=== PATIENT | female | born 1980 | race Caucasian/White ===

== ENCOUNTER 2016-11-29 12:25 | Emergency (ER) | payer MEDICAID ==
[~2016-11-29] VITALS: Ht 162.6 cm; Wt 90.0 kg
[2016-11-29 12:27] VITALS: BP 141/79; PULSE 86; RESP 16; TEMP 97.8; O2SAT 98
--- NOTE | 2016-11-29 12:50 | PD ---
HPI Chief Complaint: Complaint Time Seen by Provider: 12:46 Travel History International Travel<30 days: No Contact w/Intl Traveler<30days: No Traveled to known affect area: No History of Present Illness HPI 36-year-old female came to the emergency room with history of vaginal bleeding. She didn't speak Yoruba only and most of the conversation was mediated through an educational sign language interpreter from [employer]. Patient says that she did a home test which was positive. Her last menstrual period was September 16, 2016. She started bleeding and cramping since yesterday. She came in to be checked out. Vital signs are stable. Patient is A0. She does not have an OB for this . [facility] Past Medical History Narrative Medical List of her past medical history as reviewed from the nursing note. Medical History: Denies Significant Hx Diminished Hearing: No Tetanus Vaccination: Unknown Influenza Vaccination: Yes ?: LMP: [id number] Past Surgical History Surgical History: No Previous Surgery Social History Alcohol Use: No Tobacco Use: No Substance Use: No Allergies-Medications (Allergen,Severity, Reaction): Coded Allergies: No Known Allergies (Unverified , 12/01/16) Comments No known drug allergies. Reported Meds & Prescriptions Reported Meds & Active Scripts Active No Active Prescriptions or Reported Medications Narrative Medication Awaiting for the nurse to the medical reconciliation form home medications. Review of Systems Except as stated in HPI: all other systems reviewed are Neg Physical Exam Narrative GENERAL: Awake, alert, mild distress SKIN: Warm and dry. HEAD: Atraumatic. Normocephalic. EYES: Pupils equal and round. No scleral icterus. No injection or drainage. ENT: No nasal bleeding or discharge. Mucous membranes pink and moist. NECK: Trachea midline. No JVD. CARDIOVASCULAR: Regular rate and rhythm. No murmur appreciated. RESPIRATORY: No accessory muscle use. Clear to auscultation. Breath sounds equal bilaterally. GASTROINTESTINAL: Abdomen soft, non-tender, nondistended. Hepatic and splenic margins not palpable. : External inspection showed dried blood around the perineum and inner thigh. Speculum exam showed a significant quantity of blood and tissue product in the vaginal vault. This was cleared with the help of sponge holding forceps and 4 sponges were used to clean the blood in the tissue product. The tissues were put in a histopathology container to be sent to pathology for analysis. Cervix was open and products of conception was noticed to be coming out. MUSCULOSKELETAL: No obvious deformities. No clubbing. No cyanosis. No edema. NEUROLOGICAL: Awake and alert. No obvious cranial nerve deficits. Motor grossly within normal limits. Normal speech. PSYCHIATRIC: Appropriate mood and affect; insight and judgment normal. Data Data Last Documented VS Vital Signs Date Time Temp Pulse Resp B/P Pulse Ox O2 Delivery O2 Flow Rate FiO2 11/29/16 16:40 87 18 132/75 98 11/29/16 14:00 Room Air 11/29/16 12:27 97.8 Orders Beta Hcg (Quant/Titer) (11/29/16 12:53) Complete Blood Count With Diff (11/29/16 12:53) Basic Metabolic Panel (Bmp) (11/29/16 12:53) Type And Screen (11/29/16 12:53) Ed Urine Pregnancytest Poc (11/29/16 12:53) Ed Poc Ultrasound (11/29/16 12:53) Sodium Chlor 0.9% 1000 Ml Inj (Ns 1000 M (11/29/16 14:00) Pathology Req For Addl Service (11/29/16 13:46) Mandatory Outpatient Referral (11/29/16 14:32) Acetaminophen (Tylenol) (11/29/16 14:45) Labs Laboratory Tests Test 11/29/16 12:35 White Blood Count 9.5 TH/MM3 Red Blood Count 5.31 MIL/MM3 Hemoglobin 14.2 GM/DL Hematocrit 42.3 % Mean Corpuscular Volume 79.7 FL Mean Corpuscular Hemoglobin 26.7 PG Mean Corpuscular Hemoglobin 33.4 % Concent Red Cell Distribution Width 14.1 % Platelet Count 254 TH/MM3 Mean Platelet Volume 10.0 FL Neutrophils (%) (Auto) 70.3 % Lymphocytes (%) (Auto) 21.7 % Monocytes (%) (Auto) 6.6 % Eosinophils (%) (Auto) 1.0 % Basophils (%) (Auto) 0.4 % Neutrophils # (Auto) 6.7 TH/MM3 Lymphocytes # (Auto) 2.0 TH/MM3 Monocytes # (Auto) 0.6 TH/MM3 Eosinophils # (Auto) 0.1 TH/MM3 Basophils # (Auto) 0.0 TH/MM3 CBC Comment DIFF FINAL Differential Comment Sodium Level 139 MEQ/L Potassium Level 3.9 MEQ/L Chloride Level 103 MEQ/L Carbon Dioxide Level 27.2 MEQ/L Anion Gap 9 MEQ/L Blood Urea Nitrogen 9 MG/DL Creatinine 0.71 MG/DL Estimat Glomerular Filtration 92 ML/MIN Rate Random Glucose 133 MG/DL Calcium Level 9.4 MG/DL Human Chorionic Gonadotropin, 3711 MIU/ML Quant Blood Type O POSITIVE Antibody Screen NEGATIVE Blood Bank Comment MDM Medical Decision Making Medical Screen Exam Complete: Yes Emergency Medical Condition: Yes Medical Record Reviewed: Yes Differential Diagnosis Threatened , impending Narrative Course 2:36 PM blood test result shows a beta hCG that is much lower than expected for an almost 10 week based on last menstrual period. Plus given the bedside ultrasound and the pelvic exam my diagnosis is impending/inevitable . I explained all this to the patient through the educational sign language interpreter at length. She was naturally upset. Patient was asked if she had any questions and all her questions were answered to the best of my ability once again through the educational sign language interpreter. Patient was given a liter of IV fluid bolus and Tylenol. She has been asked to return to the emergency room 48 hours later to repeat the beta -hCG. Procedures Procedure Narrative Emergency Department Pelvic ultrasound was performed with patient consent. The curvilinear probe was used in the transverse and sagittal views within the suprapubic region revealing positive intrauterine . Gestational sac was noticed but was empty and disfigured. EKG Prior to Arrival: No Diagnosis Primary Impression: INCOMPLETE SPONTANEOUS WITHOUT COMPLICATION Referrals: Kaitlynn Perrin MD 2 days Additional Instructions: SCANNING COORDINATOR who was name and number been provided to you should call you to give him an appointment to see her since I have asked for a mandatory referral with her. However I would still recommend that tomorrow morning you should call her office to get an appointment. Please return in 48 hours to get a repeat blood test for the hormone titer done as it was explained to you. No tampons, douching or vaginal intercourse until the bleeding stops. Drink lots of fluid. Do not lift anything heavy. Please return earlier to the emergency room if condition worsens or any other new concerns. You could take Tylenol for your cramps/pain. Med/Other Pt SpecificInfo: No Change to Meds Scripts No Active Prescriptions or Reported Meds Disposition: DISCHARGE HOME Condition: Stable Keara Melton MD Nov 29, 2016 12:50
[2016-11-29 13:27] LABS: AUTOMATED NEUTROPHIL # 6.7 TH/MM3 (1.8-7.7); BASOPHIL % 0.4 % (0.0-2.0); EOSINOPHIL # 0.1 TH/MM3 (0-0.4); HEMATOCRIT 42.3 % (35.0-46.0); HEMO FLAGS DIFF FINAL; LYMPH % 21.7 % (9.0-44.0); MEAN CELL VOLUME 79.7 FL (80.0-100.0); MEAN CORPUSCULAR HEMOGLOBIN 26.7 PG (27.0-34.0); MEAN CORPUSCULAR HGB CONC 33.4 % (32.0-36.0); MONO % 6.6 % (0.0-8.0); NEUT % 70.3 % (16.0-70.0); PLATELET COUNT 254 TH/MM3 (150-450); RED BLOOD COUNT 5.31 MIL/MM3 (4.00-5.30); RED CELL DISTRIBUTION WIDTH 14.1 % (11.6-17.2); WHITE BLOOD COUNT 9.5 TH/MM3 (4.0-11.0)
[2016-11-29 13:39] LABS: BICARBONATE 27.2 MEQ/L (21.0-32.0); POTASSIUM 3.9 MEQ/L (3.5-5.1)
[2016-11-29 14:00] VITALS: BP 138/71; PULSE 81; RESP 18; O2SAT 98
[2016-11-29] MEDS ORDERED: SODIUM CHLOR 0.9% 1000 ML INJ 1,000 ML IV ONE (14:00)
[2016-11-29] MEDS ORDERED: ACETAMINOPHEN 325 MG TAB PO ONE (14:45)
[2016-11-29 15:00] VITALS: BP 139/79; PULSE 80; RESP 18
[2016-11-29 16:40] VITALS: BP 132/75
== END 2016-11-29 16:43 | disposition home or self-care (01) ==
LOC: NEPA 12:25
DX: O03.4 Incomplete spontaneous abortion without complication (principal)
CPT/HCPCS: 80048; 84702; 84703; 85025; 86850; 86900; 86901; 88305; 99284; J7030

== ENCOUNTER 2016-12-01 12:10 | Emergency (ER) | payer MEDICAID ==
[~2016-12-01] VITALS: Ht 162.6 cm; Wt 89.1 kg
[2016-12-01 12:13] VITALS: BP 132/62; PULSE 84; RESP 16; TEMP 98; O2SAT 98
--- NOTE | 2016-12-01 12:19 | PD ---
HPI Chief Complaint: Medical Clearance Time Seen by Provider: 12:17 Travel History International Travel<30 days: No Contact w/Intl Traveler<30days: No Traveled to known affect area: No History of Present Illness HPI 36 year old female with history of threatened , seen 11/29/2016 presents to the ED for repeat beta. Continues to have vaginal bleeding; not heavy. Denies fever or chills. No nausea/vomiting. No abdominal pain. PFSH Past Medical History Diminished Hearing: No ?: Social History Alcohol Use: No Tobacco Use: No Substance Use: No Allergies-Medications (Allergen,Severity, Reaction): Coded Allergies: No Known Allergies (Unverified , 12/01/16) Reported Meds & Prescriptions Reported Meds & Active Scripts Active No Active Prescriptions or Reported Medications Review of Systems Except as stated in HPI: all other systems reviewed are Neg Physical Exam Narrative GENERAL: Well-nourished, well-developed female patient, in no acute distress SKIN: Warm and dry. HEAD: Normocephalic. EYES: No scleral icterus. No injection or drainage. NECK: Supple, trachea midline. No JVD or lymphadenopathy. CARDIOVASCULAR: Regular rate and rhythm without murmurs, gallops, or rubs. RESPIRATORY: Breath sounds equal bilaterally. No accessory muscle use. GASTROINTESTINAL: Abdomen soft, non-tender, nondistended. MUSCULOSKELETAL: No cyanosis, or edema. BACK: Nontender without obvious deformity. No CVA tenderness. Data Data Last Documented VS Vital Signs Date Time Temp Pulse Resp B/P Pulse Ox O2 Delivery O2 Flow Rate FiO2 12/01/16 12:13 98.0 84 16 132/62 98 Room Air Orders Beta Hcg (Quant/Titer) (12/01/16 12:15) Labs Laboratory Tests Test 12/01/16 12:30 Human Chorionic Gonadotropin, 390 MIU/ML Quant MDM Medical Decision Making Medical Screen Exam Complete: Yes Emergency Medical Condition: Yes Medical Record Reviewed: Yes Differential Diagnosis Threatened versus complete miscarriage versus menses versus UTI Narrative Course 36-year-old female who is mostly Yakut-speaking was seen 2 days ago here at the emergency department. Translation is done by Soni ALONZO. Patient is here for repeat beta. Repeat beta is complete and has decreased tremendously and is now 390. Agent states that her vaginal bleeding is less. She appears stable.. She is given instruction to follow-up with a scoop operator. She agrees to return immediately with any acute worsening of symptoms. Diagnosis Primary Impression: Miscarriage Referrals: [facility]ight Manager Primary Care Physician Patient Instructions: General Instructions, Miscarriage (ED) Additional Instructions: Follow up with shop manager Return to ED with any acute worsening of symptoms Med/Other Pt SpecificInfo: No Change to Meds Scripts No Active Prescriptions or Reported Meds Disposition: 01 DISCHARGE HOME Condition: Stable Melyssa Lopez Dec 01, 2016 12:19
[2016-12-01 13:43] LABS: BETA HCG QUANT 390 MIU/ML (0-5)
== END 2016-12-01 14:30 | disposition home or self-care (01) ==
LOC: NETRI 12:10
DX: O03.9 Complete or unspecified spontaneous abortion without complication (principal); N93.9 Abnormal uterine and vaginal bleeding, unspecified
CPT/HCPCS: 84702; 99284